=== PATIENT | female | born 1980 | race Caucasian/White ===

== ENCOUNTER → 2016-12-13 | Outpatient (CLI) | payer BC ==
[~2016-12-13] MED LIST: HUMULIN N100 UNITS/ SC; HYDROMORPHONE HC2 MG PO; IBUPROFEN800 MG PO; PRENATAL TABLE1 EAC3 PO; PROBIOTIC1 EAC1 PO; TYLENOL EXTRA500 MG PO; ZYRTEC10 M2 PO
== END | disposition home or self-care (01) ==
LOC: CDC 12:01
DX: Z01.810 Encounter for preprocedural cardiovascular examination (principal); E11.9 Type 2 diabetes mellitus without complications
CPT/HCPCS: 93000

== ENCOUNTER 2016-12-15 05:18 | Inpatient (IN) | payer BC ==
[~2016-12-15] VITALS: Ht 160 cm; Wt 81.8 kg
[2016-12-15] VITALS (9 sets, daily range): BP systolic 107–127; BP diastolic 55–69
[~2016-12-15 05:18] MED LIST changes: -HYDROMORPHONE HC2 MG PO; -IBUPROFEN800 MG PO; -PROBIOTIC1 EAC1 PO
[2016-12-15] MEDS ORDERED: PROBIOTIC1 EAC1 PO (05:51)
[2016-12-15 06:02] LABS: POINT-OF-CARE METER ID UU13113801
[2016-12-15 09:19] LABS: POINT-OF-CARE METER ID UU13113675
[2016-12-15] MEDS ORDERED: HYDROMORPHONE HC2 MG PO (11:17)
[2016-12-15] MEDS ORDERED: IBUPROFEN800 MG PO (11:18)
[2016-12-16 03:09] VITALS: BP 113/56
[2016-12-16 07:21] LABS: EOSINOPHIL (%) 0.8 % (0-5); EOSINOPHIL COUNT 0.1 K/uL (0-0.3); HEMATOCRIT 30.8 % (36.0-46.0); IMMATURE GRANULOCYTE (%) 0.4 % (0.0-0.7); LYMPHOCYTE COUNT 2.6 K/uL (1.0-2.8); MCH 31.3 PG (29.0-34.0); MCHC 33.1 G/DL (30.0-36.0); MCV 94.5 FL (83-99); MEAN PLAT.VOLUME 12.8 uM^3 (9.5-12.4); MONOCYTE (%) 4.5 % (3-12); MONOCYTE COUNT 0.4 K/uL (0-0.8); NEUTROPHIL (%) 66.4 % (45-76); NEUTROPHIL COUNT 6.2 K/uL (1.8-6.4); PLATELET COUNT 135 K/uL (156-360); RBC DIS.WIDTH-CV 13.2 % (11.8-14.6); WHITE BLOOD COUNT 9.3 K/uL (4.1-10.2)
[2016-12-16 07:47] LABS: RED BLOOD COUNT 3.26 M/uL (3.80-5.20)
[2016-12-16 08:49] VITALS: BP 107/59
[2016-12-16 11:32] VITALS: BP 120/56
[2016-12-16 14:39] VITALS: BP 107/57
[2016-12-16 19:42] VITALS: BP 100/53
[2016-12-16 23:34] VITALS: BP 95/53
[2016-12-17 03:04] VITALS: BP 119/59
[2016-12-17 07:14] VITALS: BP 113/58
[2016-12-17 14:33] VITALS: BP 112/59
[2016-12-17 23:47] VITALS: BP 105/51
[2016-12-18 07:36] VITALS: BP 122/64
== END 2016-12-18 14:23 | disposition home or self-care (01) | DRG 766 ==
LOC: 2SOUTH → 2WEST 05:18 → 2SOUTH 08:53 → 2WEST 12-18 14:23
PROVIDERS: Obstetrics & Gynecology
PROC: 10D00Z1 Extraction of Products of Conception, Low, Open Approach (ICD-10-PCS; principal; 2016-12-15)
DX: O34.211 Maternal care for low transverse scar from previous cesarean delivery (principal); O24.424 Gestational diabetes mellitus in childbirth, insulin controlled; Z3A.39 39 weeks gestation of pregnancy; Z37.0 Single live birth; Z88.5 Allergy status to narcotic agent
CPT/HCPCS: 36415; 82948; 85025; 86850; 86900; 86901; J0690; J1100; J1885; J2274; J2405; J7120